=== PATIENT | male | born 1980 | race Caucasian/White ===

== ENCOUNTER → 2019-08-12 | Outpatient (CLI) | payer OTHER ==
--- NOTE | 2019-08-12 15:35 | Diagnostic Imaging Report ---
PROCEDURE: US Scrotum. TECHNIQUE: Multiple real-time grayscale images were obtained over the scrotum in various projections bilaterally. INDICATION: Left testicular pain extending into the inguinal canal. FINDINGS: Right testicle measures 5.6 x 2.5 x 3.0 cm and the left testicle measures 4.6 x 2.2 x 3.2 cm. Both testes show homogeneous echotexture. No discrete testicular mass is seen. There is blood flow to both testes. Epididymides are unremarkable. No hydrocele is seen. There may be a varicocele on the left. The left inguinal canal is unremarkable. IMPRESSION: 1. No evidence of testicular mass or torsion. 2. Left varicocele. Dictated by: Dictated on workstation # [id number]
== END ==
LOC: RAD 14:06
PROVIDERS: ATTEND Nurse Practitioner Family
DX: I86.1 Scrotal varices (principal); K21.9 Gastro-esophageal reflux disease without esophagitis
CPT/HCPCS: 76870

== ENCOUNTER → 2021-06-13 | Outpatient (CLI) | payer OTHER ==
--- NOTE | 2021-06-13 16:52 | Diagnostic Imaging Report ---
PROCEDURE: CT abdomen and pelvis without contrast. TECHNIQUE: Multiple contiguous axial images were obtained through the abdomen and pelvis without the use of intravenous contrast. Auto Exposure Controls were utilized during the CT exam to meet ALARA standards for radiation dose reduction. INDICATION: Microhematuria. FINDINGS: Punctate nodule is seen in the subpleural aspect of the right middle lobe of uncertain significance. Unenhanced images of the liver and spleen reveal no focal abnormality. No gallbladder, pancreatic or adrenal gland abnormality is identified. No free fluid is identified. Kidneys are unremarkable in appearance. There is no evidence of renal calculus or hydronephrosis. There is no evidence of urinary tract stone. The unopacified bladder has a normal appearance. There are calcified phleboliths seen, bilaterally, in the pelvis. The appendix has a normal appearance. There is mild L5-S1 degenerative disc disease with endplate spurring present. IMPRESSION: No evidence of acute abnormality within the abdomen or pelvis. In particular, there is no evidence of urinary tract calculus. Dictated by: Dictated on workstation # [id number]
== END ==
LOC: RAD 16:15
PROVIDERS: ATTEND Urology
DX: R31.29 Other microscopic hematuria (principal)
CPT/HCPCS: 74176

== ENCOUNTER 2022-05-16 13:00 | Outpatient (CLI) | payer OTHER ==
[~2022-05-16] VITALS: Ht 180.3 cm; Wt 81.7 kg
[2022-05-21] MEDS ORDERED: OMEP20TA56 PO (09:25)
[2022-05-21] MEDS ORDERED: CYCL10TA25 PO (09:25)
== END 2022-05-21 10:20 | disposition home or self-care (01) ==
LOC: PREOP 13:00
PROVIDERS: ATTEND Surgery
DX: Z01.818 Encounter for other preprocedural examination (principal)

== ENCOUNTER 2022-05-23 08:27 | Day surgery (SDC) | payer OTHER ==
[~2022-05-23] VITALS: Ht 180 cm; Wt 81.7 kg
[2022-05-23] VITALS (8 sets, daily range): BP systolic 108–139; BP diastolic 74–99
[~2022-05-23 08:27] MED LIST: CYCL10TA25 PO; OMEP20TA56 PO
[2022-05-23] MEDS: LACTATED RINGERS 1,000 ML IV PRN ×2 (09:09→12:23)
--- NOTE | 2022-05-23 09:57 | Progress Note-Pre Operative ---
Pre-Operative Progress Note Date of Available H&P: May 08, 2022 Date H&P Reviewed: May 23, 2022 Time H&P Reviewed: 09:57 History & Physical: H&P Reviewed, Patient Examed, No changes noted Pre-Operative Diagnosis: posterior neck mass BRITTNEY ARZOLA DO May 23, 2022 09:57
[2022-05-23] MEDS ORDERED: BUPIVACAINE 0.5% 30 ML (SENSORCAINE) VIAL ONE (11:45)
[2022-05-23] MEDS ORDERED: fentaNYL INJ 100 MCG/2 ML AMP ONE (11:51)
[2022-05-23] MEDS ORDERED: MIDAZOLAM 2 MG/2 ML (VERSED) VIAL ONE (12:07)
[2022-05-23] MEDS ORDERED: BUPIVACAINE 0.5% 30 ML (SENSORCAINE) VIAL INJ ONE (12:24)
[2022-05-23] MEDS ORDERED: ceFAZolin INJECTION 0 MG ONE (12:34)
[2022-05-23] MEDS ORDERED: ceFAZolin INJECTION 2,000 MG IV ONE (12:34)
[2022-05-23] MEDS ORDERED: ceFAZolin INJECTION 2,000 MG ONE (12:36)
--- NOTE | 2022-05-23 12:57 | Anesthesia-General Post-Op ---
General Patient Condition Mental Status/LOC: Same as Preop Cardiovascular: Satisfactory Nausea/Vomiting: Absent Respiratory: Satisfactory Pain: Controlled Complications: Absent Post Op Complications Complications None Follow Up Care/Instructions Patient Instructions None needed. Anesthesia/Patient Condition Patient Condition Patient is doing well, no complaints, stable vital signs, no apparent adverse anesthesia problems. No complications reported per nursing. ROBIN PANG CRNA May 23, 2022 12:57
[2022-05-23] MEDS ORDERED: fentaNYL INJ 100 MCG/2 ML AMP IVP ONE (13:00)
[2022-05-23] MEDS ORDERED: ONDANSETRON 4 MG/2 ML (SDV) Z0FRAN IVP PRN (13:00)
[2022-05-23] MEDS ORDERED: LIDOCAINE PF 2% 5 ML (XYLOCAINE) VIAL ONE (13:07)
[2022-05-23] MEDS ORDERED: proPOfol 200 MG/20 ML (DIPRIVAN) VIAL IV ONE (13:07)
[2022-05-23] MEDS ORDERED: ONDANSETRON 4 MG/2 ML (SDV) Z0FRAN ONE (13:07)
[2022-05-23] MEDS ORDERED: SEVOFLURANE (ULTANE) 15 ML INHAL SOLN ONE (13:07)
--- NOTE | 2022-05-23 13:49 | Discharge Inst-Simple/Standard ---
Discharge Inst-Standard Patient Instructions/Follow Up Plan of Care/Instructions/FU: 2 weeks Katya Activity as Tolerated: Yes Discharge Diet: Regular Diet Other Inst to Patient Follow up Appt: Make appointment for 2 week. Instructions: No strenuous activity. May shower in 24 hours, no tub bath or soaking. Use incentive spirometer at home as directed. No Smoking Skin/Wound Care: You have special glue over your incision that will fall off on it's own. Symptoms to Report: Appetite Changes, Extremity Discoloration, Numbness/Tingling, Swelling Increased, Bleeding Excessive, Eyesight Changes, Pain Increased, Urine Color Change, Constipation(Persistent), Fever over 101 degree F, Pain/Pressure in [place] st, Urinating Difficulty, Cough Up/Vomit Blood, Heart Beat Irreg/Pounding, Pain/Pressure in jaw, Vaginal Bleeding Increase, Cramps in feet or legs, Lightheadedness, Pain/Pressure in shoulder, Diarrhea(Persistent), Memory Changes Suddenly, Questions/Concerns, Weight gain consecutive days, Dizziness/Fainting, Nausea/Vomiting, Shortness of Breath, Weight gain over 2 pounds If questions or concerns contact your physician Or seek help at emergency department. BRITTNEY ARZOLA DO May 23, 2022 13:49
--- NOTE | 2022-05-24 13:54 | OPERATIVE REPORT ---
DATE OF SERVICE: 05/23/2022 PREOPERATIVE DIAGNOSIS: Posterior neck mass. POSTOPERATIVE DIAGNOSIS: Posterior neck mass. PROCEDURE: Excision neck mass, 2 x 1.6 cm. SURGEON: Brittney Aldana DO ANESTHESIA: General. ESTIMATED BLOOD LOSS: Minimal. COMPLICATIONS: None. INDICATIONS: The patient is a 41-year-old male with a neck mass, which causes pain and discomfort. He wished to have it removed. Consent was signed and on the chart. DESCRIPTION OF PROCEDURE: The patient was taken to the operating suite where he was prepped and draped in sterile fashion. Timeout was performed. A 15 blade scalpel was used to make a skin incision over the area of the palpable mass down through the skin into the subcutaneous tissues, which was in a cystic-appearing mass. This was then dissected around and then cautery was able to be used to excise the remainder of the area. It was brought out in its entirety and intact. The area was then irrigated, injected with local anesthetic and the skin was then closed using 4-0 Monocryl in a running subcuticular fashion and the area was washed and dried and Skin Affix was placed over the incision. The patient tolerated the procedure well without complications, taken to recovery room in stable condition. Job ID: [id number] DocumentID: [id number] Dictated Date: 05/24/2022 09:16:33 Service Provider Date: 05/24/2022 13:53:00 Dictated By: BRITTNEY ALDANA DO
== END 2022-05-23 14:07 | disposition home or self-care (01) ==
LOC: SDC 08:27
PROVIDERS: ATTEND Surgery
DX: L72.0 Epidermal cyst (principal); K21.9 Gastro-esophageal reflux disease without esophagitis; Z79.899 Other long term (current) drug therapy
CPT/HCPCS: 87081; 88304